=== PATIENT | male | born 2000 | race Caucasian/White ===

== ENCOUNTER 2023-09-27 09:28 | Emergency (ER) | payer MEDICAID, SELFPAY ==
[2023-09-27 09:30] VITALS: BP 156/83; PULSE 83; RESP 26; TEMP 36.6; O2SAT 99
--- NOTE | 2023-09-27 09:30 | DI.RAD_ITS ---
Exam(s) XR PORTABLE CHEST AP EXAM: XR PORTABLE CHEST AP CLINICAL HISTORY: asthma, productive cough. TECHNIQUE: 2D digital imaging was performed. COMPARISON: No exams were available for comparison FINDINGS: Single AP portable view. Heart size is upper normal. The mediastinum is not widened. Lungs are clear. No infiltrates nor obvious pleural effusions. IMPRESSION: No acute pulmonary findings on this single AP portable view of the chest. DATA REPOSITORY: RADIATION DOSE DELIVERED:
[2023-09-27 09:42] VITALS: BP 187/83; PULSE 95; RESP 20; RESP 5; TEMP 36.5; O2SAT 99
[2023-09-27] MEDS: Albuterol/Ipratropium 3 ML UPD VIAL ×3 (09:42→10:15)
--- NOTE | 2023-09-27 09:44 | ED.GENADUL_ITS ---
HPI General Date/Time Provider Initiated Documentation: 09/27/23 09:35 . HPI Narrative: 23-year-old male history of asthma presents with cough and wheezing over the last day, productive cough thick white sputum. Shortness of breath. Use inhaler at home. Denies history of intubation or hospitalization for asthma in the past Related Data Home Medications Medication Instructions Recorded Confirmed albuterol sulfate 90 mcg/actuation 2 puff inhalation Q6H PRN 09/27/23 aerosol inhaler shortness of breath or wheezing #6.7 grams albuterol sulfate 90 mcg/actuation 2 inh inhalation Q6H PRN 09/27/23 09/27/23 breath activated powder inhaler Previous Rx's Medication Instructions Recorded albuterol sulfate 90 mcg/actuation 2 puff inhalation Q6H PRN 09/27/23 aerosol inhaler shortness of breath or wheezing #6.7 grams Allergies Allergy/AdvReac Type Severity Reaction Status Date / Time penicillin Allergy Unknown Other (See Uncoded 09/27/23 10:03 Comment) General Stated Complaint: SOB ONEIDA: 3 Review of Systems Narrative: Review of Systems Constitutional: negative Eyes: negative ENT: negative Cardiovascular: negative Respiratory: Shortness of breath cough wheeze Gastrointestinal: negative : negative Musculoskeletal: negative Skin: negative Neurologic: negative Psych: negative Exam Narrative Exam Narrative: Physical Examination General: alert, awake, cooperative, resting comfortably, no acute distress HEENT: normocephalic, atraumatic; PERRL, EOM intact, conjunctiva normal; no nasal discharge; moist mucous membranes, oral and pharyngeal mucosa normal, tolerating secretions Neck: supple, trachea midline; full ROM Chest: normal to inspection Respiratory: Tachypnea speaking in short sentences, quiet lung sounds right field, expiratory wheeze left lung alberto Cardiac: regular rate, regular rhythm, S1S2 intact, no murmurs rubs or gallops GI: abdomen soft, non-tender, non-distended; no palpable mass or hepatosplenomegaly Skin: no lesions, rashes or trauma appreciated Neuro: AAOx3, normal speech, moving all extremities Psych: Appropriate mood and affect Course Vital Signs Vital signs: Vital Signs Temperature 36.6 C 09/27/23 09:30 Pulse 83 09/27/23 09:30 Respiratory Rate 26 H 09/27/23 09:30 Blood Pressure 156/83 H 09/27/23 09:30 Pulse Oximetry 99 02/09/24 09:30 Temperature 36.6 C 09/27/23 09:30 Temperature Source Skin 09/27/23 09:30 Pulse 83 09/27/23 09:30 Respiratory Rate 26 H 09/27/23 09:30 Blood Pressure 156/83 H 09/27/23 09:30 Blood Pressure Position Sitting 09/27/23 09:30 Pulse Oximetry 99 09/27/23 09:42 Oxygen Delivery Method Room Air 09/27/23 09:42 Oxygen Flow Rate 0 09/27/23 09:42 Pain Level 0 09/27/23 09:30 Medical Decision Making 23-year-old male history of asthma presents with cough shortness of breath cough productive of white sputum, speaking short sentences tachypneic, quiet lung alberto right lung, expiratory wheeze left lung alberto, consider asthma exacerbation in setting of viral URI versus bacterial pneumonia muscles consider pneumothorax versus pleural effusion. Will obtain basic labs magnesium, chest x-ray, DuoNebs, dexamethasone close reassessment consider magnesium administration if no improvement 10: 26 improving after nebs. Awaiting blood test and chest x-ray results. Likely home with close follow-up 11: 04 feeling much better after nebs and steroid. Tachypnea has resolved speaking full sentences without issue. Normoxic. Viral swab and x-ray negative. Will call in prescription for his albuterol. Home care instructions return precautions given. Quality:SDOH Health Related Social Needs: No Data to Display PFSH All Active Problems (Updated 09/27/23 @ 11:05 by Jonathan Chu MD) Asthma exacerbation (Acute) Social History Smoking/Tobacco Use Status: Never Smoking risk assessment performed?: Yes Drug use: Never Substance use type: does not use Housing: house Do you feel safe at home: Yes Do you feel safe in your relationship?: Yes Discharge Plan Disposition Patient Disposition: Home Condition: Improving Discharge Details Clinical Impression: Asthma exacerbation ED Provider: Jonathan Chu Home Meds and New Rx's Prescriptions: New albuterol sulfate 90 mcg/actuation HFA aerosol inhaler 2 puff inhalation Q6H PRN (Reason: shortness of breath or wheezing) Qty: 6.7 0RF No Action albuterol sulfate 90 mcg/actuation aerosol powdr breath activated 2 inh inhalation Q6H PRN Discharge Instructions Instructions: Asthma (ED)
[2023-09-27] MEDS: Dexamethasone 10 MG/ML VIAL IVP (10:03)
[2023-09-27 10:04] LABS: Abs Immature Grans 0.05 10^3/uL (0.0-0.06); Absolute Basophil Count 0.07 10^3/uL (0.0-0.2); Absolute Eosinophil Count 0.19 10^3/uL (0.0-0.7); Absolute Lymphocyte Count 4.21 10^3/uL (1.2-3.4); Absolute Monocyte Count 0.68 10^3/uL (0.1-0.8); Basophils % 0.7; Eosinophils % 1.8; HCT 43.8 % (40.0-50.0); HGB 14.6 g/dL (13.5-17.5); Immature Grans % 0.5; Lymphocytes % 39.3; MCH 28.2 pg (27.0-33.0); MCHC 33.3 % (32.0-36.0); MCV 85 fL (80-95); MPV 9.1 fL (8.0-11.0); Monocytes % 6.4; Neutrophils % 51.3; Platelet Count 416 10^3/uL (130-400); RBC 5.17 10^6/uL (4.36-5.78); RDW 14.4 % (11.8-14.1); RDW-SD 44.8 fL
[2023-09-27 10:05] VITALS: RESP 20; RESP 5; O2SAT 99
[2023-09-27 10:15] VITALS: RESP 18; RESP 5; O2SAT 99
[2023-09-27 10:22] LABS: ALT 62 U/L (16-63); AST 33 U/L (15-37); Albumin 3.9 g/dL (3.4-5.0); Alkaline Phosphatase 58 U/L (46-116); Anion Gap 13.6 mmol/L (3-11); BUN 12 mg/dL (7-18); Bilirubin, Total 0.5 mg/dL (0.2-1.0); CO2 23.4 mmol/L (21.0-32.0); CREATININE 0.8 mg/dL (0.70-1.30); Calcium 9.3 mg/dL (8.5-10.1); Chloride 104 mmol/L (98-107); Estimated GFR 128.33 (mL/min/1.73m2); Glucose 96 mg/dL (74-106); Magnesium 1.8 mg/dL (1.8-2.4); Potassium 3.6 mmol/L (3.5-5.1); Sodium 141 mmol/L (136-145); Total Protein 8.2 g/dL (6.4-8.2)
[2023-09-27 11:18] VITALS: BP 124/58; PULSE 78; RESP 14; O2SAT 98
[2023-09-27 11:23] VITALS: BP 124/58; PULSE 78; RESP 14; O2SAT 98
--- NOTE | 2023-09-30 18:05 | NUR.NOTE ---
Ekg order cancelled due to no EKG in [facility] or on EKG units. Nursing Note:
== END 2023-09-27 11:29 | disposition home or self-care (01) ==
LOC: ER 11:32
PROVIDERS: Emergency Provider Emergency Medicine; PCP Family Medicine
DX: J45.901 Unspecified asthma with (acute) exacerbation (principal)
CPT/HCPCS: 80053; 87426; 94640; 99284; 71045; 83735; 85025; 99283; J1100; J7620

== ENCOUNTER 2023-10-21 08:29 | Emergency (ER) | payer MEDICAID, SELFPAY ==
[2023-10-21 08:33] VITALS: BP 158/70; PULSE 82; RESP 20; TEMP 36.6; O2SAT 97
--- NOTE | 2023-10-21 08:47 | W.ED.GENAD ---
Discharge Plan Disposition Patient Disposition: Home Condition: Stable Discharge Details Clinical Impression: Asthma exacerbation, Upper respiratory infection, acute Primary Care Provider: Tahir Hernandez ED Provider: Tatiana Rosario Home Meds and New Rx's Prescriptions: New prednisone 50 mg tablet 50 mg PO DAILY Qty: 5 0RF benzonatate 200 mg capsule 200 mg PO TID PRNQty: 20 0RF No Action albuterol sulfate 90 mcg/actuation aerosol powdr breath activated 2 inh inhalation Q6H PRN albuterol sulfate 90 mcg/actuation HFA aerosol inhaler 2 puff inhalation Q6H PRN (Reason: shortness of breath or wheezing) Qty: 6.7 0RF Discharge Instructions Instructions: Asthma (ED), Upper Respiratory Infection (ED) Referrals: Tahir Hernandez [Primary Care Provider] - 3 days Discharge Data Discharge Physician: Tatiana Rosario [facility] General Date/Time Provider Initiated Documentation: 10/21/23 08:33. HPI Narrative: 23-year-old male with history of asthma presents for evaluation of cough. Patient states he has had a cough for the last 3 days. There is occasional white or yellow sputum. Occasionally he coughs so much that he does vomit. He denies any fevers or chills. No abdominal pain. No chest pain or shortness of breath. He does have an albuterol inhaler that he uses at home as needed. He did use it yesterday without any change in symptoms. He occasionally smokes cigarettes. No diarrhea or constipation. No urinary difficulty. Related Data Home Medications Medication Instructions Recorded Confirmed albuterol sulfate 90 mcg/actuation 2 puff inhalation Q6H PRN 09/27/23 10/21/23 aerosol inhaler shortness of breath or wheezing #6.7 grams albuterol sulfate 90 mcg/actuation 2 inh inhalation Q6H PRN 09/27/23 10/21/23 breath activated powder inhaler benzonatate 200 mg capsule 200 mg PO TID PRN #20 caps 10/21/23 prednisone 50 mg tablet 50 mg PO DAILY #5 tabs 10/21/23 Previous Rx's Medication Instructions Recorded albuterol sulfate 90 mcg/actuation 2 puff inhalation Q6H PRN 09/27/23 aerosol inhaler shortness of breath or wheezing #6.7 grams benzonatate 200 mg capsule 200 mg PO TID PRN #20 caps 10/21/23 prednisone 50 mg tablet 50 mg PO DAILY #5 tabs 10/21/23 Allergies Allergy/AdvReac Type Severity Reaction Status Date / Time penicillin Allergy Unknown Other (See Uncoded 10/21/23 09:34 Comment) General Stated Complaint: RespSymp ONEIDA: 4 Review of Systems Narrative: Remainder of review of systems otherwise negative except present on the HPI x 10. Exam Narrative Exam Narrative: General: non-toxic, no respiratory distress, comfortable HEENT: normocephalic, atraumatic, lids and lashes normal, PERRL, EOMI, anicteric sclera, no conjunctival injection, moist oral mucosa Card: regular rate and rhythm, S1S2, no murmurs, rubs, or gallops Lungs: Decreased air exchange, clear to auscultation bilaterally. no wheezes, rales, rhonchi, or retractions Abd: soft, non-tender, non-distended, normal bowel sounds, no rebound or guarding, no peritoneal signs Musculoskeletal: full range of motion of arms and legs, no tenderness to palpation. no clubbing, cyanosis, or edema Neurologic: appropriate for age, strength normal Psych: alert and oriented Skin: no petechiae, no lesions, warm and dry Course Vital Signs Vital signs: Vital Signs Temperature 36.6 C 10/21/23 08:33 Pulse 82 10/21/23 08:33 Respiratory Rate 20 10/21/23 08:33 Blood Pressure 158/70 H 10/21/23 08:33 Pulse Oximetry 97 10/21/23 08:33 Temperature 36.6 C 10/21/23 08:33 Temperature Source Oral 10/21/23 08:33 Pulse 82 10/21/23 08:33 Respiratory Rate 20 10/21/23 08:33 Respiratory Effort Normal, Non-Labored 10/21/23 08:36 Blood Pressure 158/70 H 10/21/23 08:33 Blood Pressure Position Sitting 10/21/23 08:33 Pulse Oximetry 97 10/21/23 08:33 Oxygen Delivery Method Room Air 10/21/23 08:33 Oxygen Flow Rate 0 10/21/23 08:33 Medical Decision Making 23-year-old male presents for evaluation of cough for the last 3 days. Will treat with Tessalon and prednisone. Will check COVID and flu. Rapid COVID and flu are negative. Patient is not hypoxic. He was given Tessalon and prednisone. He will continue using these at home in addition to his inhaler. Do not feel that antibiotics are warranted at this time. He understands indications to return. Quality:SDOH Health Related Social Needs: No Data to Display PFSH All Active Problems (Updated 10/21/23 @ 09:33 by Tatiana Rosario MD) Upper respiratory infection, acute (Acute) Asthma exacerbation (Acute) Social History Smoking/Tobacco Use Status: Never Smoking risk assessment performed?: Yes Alcohol Intake: never Drug use: Never Substance use type: does not use Housing: house Do you feel safe at home: Yes Do you feel safe in your relationship?: Yes
[2023-10-21] MEDS: Benzonatate 100 MG CAP 200 MG PO (09:18)
[2023-10-21] MEDS: predniSONE 20 MG TAB 60 MG PO (09:19)
== END 2023-10-21 09:49 | disposition home or self-care (01) ==
LOC: ER 09:47
PROVIDERS: Emergency Provider Emergency Medicine Emergency Medical Services; PCP Family Medicine
DX: J06.9 Acute upper respiratory infection, unspecified (principal); R05.1 Acute cough; R51.9 Headache, unspecified
CPT/HCPCS: 99283; J7512

== ENCOUNTER 2023-10-22 12:41 | Emergency (ER) | payer MEDICAID, SELFPAY ==
[2023-10-22 12:45] VITALS: BP 160/89; PULSE 85; RESP 18; TEMP 36.8; O2SAT 97
--- NOTE | 2023-10-22 12:59 | W.ED.GENAD ---
Discharge Plan Disposition Patient Disposition: Home Condition: Stable Discharge Details Clinical Impression: Upper respiratory infection Primary Care Provider: Tahir Hernandez ED Provider: Darron Watson Home Meds and New Rx's Prescriptions: New Oly CF Max Severe M-S Cold 10-20-650 mg/20 mL liquid 20 ml PO .q6hr Qty: 118 0RF Continued albuterol sulfate 90 mcg/actuation aerosol powdr breath activated 2 inh inhalation Q6H PRN albuterol sulfate 90 mcg/actuation HFA aerosol inhaler 2 puff inhalation Q6H PRN (Reason: shortness of breath or wheezing) Qty: 6.7 0RF prednisone 50 mg tablet 50 mg PO DAILY Qty: 5 0RF benzonatate 200 mg capsule 200 mg PO TID PRNQty: 20 0RF Discharge Instructions Instructions: Upper Respiratory Infection (ED) Additional Instructions: You were seen in the emergency department for your recheck of your upper respiratory infection, you are having a possible medication side effect to Tessalon Perles I recommend he discontinue this. You are in no respiratory distress and I did send a prescription strength cough medicine to [facility] in [place]. Please keep taking your ibuprofen as needed. You could also take 2 Aleve in the morning and 2 in the evening but you would have to discontinue Advil or ibuprofen with Aleve/naproxen. Use tea with honey to help ease throat irritation. Please try to use urgent care services for nonemergent matters as your vitals have been very stable and you are otherwise a healthy young person. Please do not hesitate to return to the emergency department for any emergent concerns or significant respiratory distress. Referrals: Tahir Hernandez [Primary Care Provider] - [facility] General Date/Time Provider Initiated Documentation: 10/22/23 12:59. HPI Narrative: 23 year-old male presents to ED today by POV/ambulating with a chief complaint of re-check, states he was here for URI yesterday, given steroids and tessalon perles but is now having vomiting with these medicines with onset of URI symptoms 3 days prior. Quality described as cough, reports vomiting about 20 minutes after taking tessalon perles- yesterday and this morning, no radiation to shortness of breath, chest pain, syncope, diarrhea. Severity is described as moderate. Palliating factors include has inhaler at home. Provoking factors include nothing specific. Patient was negative for Covid and flu by POC test yesterday. Patient not anticoagulated. Related Data Home Medications Medication Instructions Recorded Confirmed albuterol sulfate 90 mcg/actuation 2 puff inhalation Q6H PRN 09/27/23 10/21/23 aerosol inhaler shortness of breath or wheezing #6.7 grams albuterol sulfate 90 mcg/actuation 2 inh inhalation Q6H PRN 09/27/23 10/21/23 breath activated powder inhaler benzonatate 200 mg capsule 200 mg PO TID PRN #20 caps 10/21/23 prednisone 50 mg tablet 50 mg PO DAILY #5 tabs 10/21/23 [id number] 20 ml PO .q6hr cough #118 mL 10/22/23 10 mg-20 mg-650 mg/20 mL oral liq (Tussin CF Max Severe M-S Cold) Previous Rx's Medication Instructions Recorded albuterol sulfate 90 mcg/actuation 2 puff inhalation Q6H PRN 09/27/23 aerosol inhaler shortness of breath or wheezing #6.7 grams benzonatate 200 mg capsule 200 mg PO TID PRN #20 caps 10/21/23 prednisone 50 mg tablet 50 mg PO DAILY #5 tabs 10/21/23 [id number]-guaif 20 ml PO .q6hr cough #118 mL 10/22/23 10 mg-20 mg-650 mg/20 mL oral liq (Tussin CF Max Severe M-S Cold) Allergies Allergy/AdvReac Type Severity Reaction Status Date / Time penicillin Allergy Unknown Other (See Uncoded 10/21/23 09:34 Comment) General Stated Complaint: Nausea/Vomit/Diar ONEIDA: 3 Review of Systems All systems reviewed & are unremarkable except as noted in HPI and below Exam Narrative Exam Narrative: GENERAL APPEARANCE: Well-nourished, non-toxic, awake and alert, atraumatic, no acute distress. SKIN: Warm, pink, dry, intact, without rashes/lesions/ulcerations. HEAD: Normocephalic, atraumatic, normal hair distribution for gender/age. EYES: Pupils PERRLA, EOMs intact without nystagmus, normal conjunctiva, no exudates on lids/lashes. ENT: Nares patent, no circumoral cyanosis, no facial swelling NECK: Supple, trachea midline, painless cervical ROM. LUNGS/CHEST: Lungs CTA bilaterally- no rhonchi/rales/wheezes diffusely, non-labored respirations, normal A/P diameter, symmetrical expansion, no chest wall deformity HEART (CV/PV): Regular rate and rhythm without murmur, no peripheral edema, no JVD. ABDOMEN: Soft, non-distended, no guarding, no tenderness. MSK: Normal ROM, no swelling/deformity to bilateral UEs or LEs, moving all extremities without weakness, no cyanosis, spine midline without tenderness, normal curvature. NEURO: Mental Status AAOx4 - alert to person, place, time, events No facial droop, no forehead involvement. Motor: No focal weakness - strength 5/5 in bilateral UEs and LEs, proximal and distal, symmetric. Sensory: sensation intact to light touch globally. Gait normal: patient ambulated without ataxia into ED room. PSYCH: euthymic, cooperative, pleasant, appropriate speech Course Vital Signs Vital signs: Vital Signs Temperature 36.8 C 10/22/23 12:45 Pulse 85 10/22/23 12:45 Respiratory Rate 18 10/22/23 12:45 Blood Pressure 160/89 H 10/22/23 12:45 Pulse Oximetry 97 10/22/23 12:45 Temperature 36.8 C 10/22/23 12:45 Temperature Source Temporal Artery Scan 10/22/23 12:45 Pulse 85 10/22/23 12:45 Respiratory Rate 18 10/22/23 12:45 Blood Pressure 160/89 H 10/22/23 12:45 Blood Pressure Position Sitting 10/22/23 12:45 Pulse Oximetry 97 10/22/23 12:45 Oxygen Delivery Method Room Air 10/22/23 12:45 Oxygen Flow Rate 0 10/22/23 12:45 Medical Decision Making This dictation utilizes [id number] dictation software and may contain unedited grammatical errors. 23 y/o M presents to ED today with a chief complaint of re-check for URI symptoms, having vomiting with steroids/tessalon perles. Essentially wants a Rx cough syrup. Patients' medical history: asthma. Family and social history: noncontributory. Pertinent exam findings / vital signs include no wheezing, benign cardiopulmonary exam, nontoxic. Differential / pathologies of concern include upper respiratory infection. Diagnostic studies of: -None, discussed chest x-ray but with his stable respiratory status would likely be unhelpful. Interventions of: -Sent prescription cough syrup. ED Course/Assessment/Plan: Counseled the patient that he is a young healthy individual, has a URI, counseled on using tea with honey to help with with his throat irritation as well as sent a cough syrup, recommend discontinuation of Tessalon Perles as he may be having a medication side effect. Findings not consistent with hypoxic respiratory failure. Disposition of upper respiratory infection. Patient verbalized understanding of the plan and return to ED criteria and engaged in shared decision making. Medical Records Medical records reviewed: Yes I reviewed the patient's medical records. Quality:SDOH Health Related Social Needs: No Data to Display PFSH All Active Problems (Updated 10/22/23 @ 13:44 by ALLAN Mccann) Upper respiratory infection (Acute) Upper respiratory infection, acute (Acute) Asthma exacerbation (Acute) Social History Smoking/Tobacco Use Status: Never Smoking risk assessment performed?: Yes Alcohol Intake: never Drug use: Never Substance use type: does not use Housing: house Do you feel safe at home: Yes Do you feel safe in your relationship?: Yes
[2023-10-22 14:23] VITALS: BP 121/68; PULSE 81; RESP 16; TEMP 36.6; O2SAT 96
== END 2023-10-22 14:24 | disposition home or self-care (01) ==
PROVIDERS: Emergency Provider Physician Assistant; PCP Family Medicine
DX: J06.9 Acute upper respiratory infection, unspecified (principal); R05.1 Acute cough; R11.10 Vomiting, unspecified
CPT/HCPCS: 99282; 99283